=== PATIENT | female | born 1950 | race Caucasian/White ===

== ENCOUNTER 2016-11-20 12:30 | Emergency (ER) | payer MEDICARE, BC ==
[~2016-11-20] VITALS: Ht 165.1 cm; Wt 104.5 kg
[2016-11-20 12:37] VITALS: TEMP 98.2
[2016-11-20 13:36] LABS: PH 7 (5-8); SQUAMOUS EPITHELIAL 0-2 /hpf; URINE APPEARANCE Clear; URINE BACTERIA None Seen /hpf; URINE BILIRUBIN Negative (NEGATIVE); URINE BLOOD Negative (NEGATIVE); URINE COLOR Straw; URINE GLUCOSE Negative (NEGATIVE); URINE KETONE Negative (NEGATIVE); URINE RBC 0-2 /hpf; URINE UROBILINOGEN Negative (NEGATIVE); URINE WBC 0-2 /hpf
[2016-11-20 13:44] LABS: BASO % 0.5 % (0.0-2.0); EOS # 0.1 (0.0-0.7); GRAN # 3.8 (1.4-6.5); GRAN % 57.5 % (42.2-75.2); HEMOGLOBIN 13.9 g/dl (12.5-16.0); LYMPH # 2.1 (1.2-3.4); LYMPH % 31.3 % (20.0-51.0); MEAN CELL VOLUME 92 fl (80.0-100.0); MEAN CORPUSCULAR HEMOGLOBIN 30 pg (27.0-31.0); MEAN CORPUSCULAR HGB CONC 32 g/dl (33.0-37.0); MEAN PLATELET VOLUME 10.3 fl (7.4-10.4); MONO # 0.6 (0.1-0.6); MONO % 8.5 % (1.7-9.3); PLATELET COUNT 269 K/mm3 (130-400); RED BLOOD COUNT 4.67 M/mm3 (4.10-5.30); REDCELL DISTRIBUTION WIDTH-CV 13.9 % (11.5-14.5); WHITE BLOOD COUNT 6.6 K/mm3 (4.8-10.8)
[2016-11-20] MEDS ORDERED: MASON NATURAL1200 MG PO (13:46)
[2016-11-20] MEDS ORDERED: OSCAL 500 TAB500 MG PO (13:46)
[2016-11-20] MEDS ORDERED: WOMEN'S DAILY1 TAB PO (13:46)
[2016-11-20] MEDS ORDERED: LIPITOR 40MG TA40 MG PO (13:47)
[2016-11-20] MEDS ORDERED: ASPIRIN 81M81 MG/TA2 PO (13:47)
[2016-11-20] MEDS ORDERED: VITAMIN D32000 IU PO (13:47)
[2016-11-20] MEDS ORDERED: B COMPLEX & B121 TAB PO (13:47)
[2016-11-20] MEDS ORDERED: DEXILANT60 MG PO (13:47)
[2016-11-20] MEDS ORDERED: ZESTRIL 10MG10 MG PO (13:48)
[2016-11-20] MEDS ORDERED: ZEBETA 5MG5 MG PO (13:48)
[2016-11-20 13:53] LABS: ADJUSTED CALCIUM 9.8 mg/dL (8.4-10.2); ALANINE AMINOTRANSFERASE 34 U/L (9-52); ALBUMIN 4.2 gm/dL (3.5-5.0); ALKALINE PHOSPHATASE 68 U/L (50-136); ANION GAP 13 mmol/L (7-16); BILIRUBIN,TOTAL 0.9 mg/dL (0.0-1.0); BLOOD UREA NITROGEN 19 mg/dL (7-17); CARBON DIOXIDE 24 mmol/L (22-30); CHLORIDE 103 mmol/L (98-107); GLUCOSE 115 mg/dL (74-106); MAGNESIUM 2.2 mg/dL (1.6-2.3); POTASSIUM 4.1 mmol/L (3.4-5.0); SODIUM 140 mmol/L (137-145); TOTAL PROTEIN 7.7 gm/dL (6.4-8.2)
[2016-11-20 14:04] LABS: TROPONIN-I < 0.012 ng/mL (0.000-0.034)
[2016-11-20 16:46] VITALS: BP 132/86
[2016-11-20] MEDS ORDERED: ATIVAN 0.50.5 MG/TAB PO (17:33)
[2016-11-20 17:41] VITALS: PULSE 86
== END 2016-11-20 17:41 | disposition home or self-care (01) ==
LOC: COL.ER 12:30
PROVIDERS: Emergency Medicine
DX: R42 Dizziness and giddiness (principal); H81.20 Vestibular neuronitis, unspecified ear
CPT/HCPCS: J2060; J7030; Q9967

== ENCOUNTER → 2016-12-09 | Outpatient (CLI) | payer MEDICARE, BC ==
[~2016-12-09] MED LIST: ASPIRIN 81M81 MG/TA2 PO; ATIVAN 0.50.5 MG/TAB PO; B COMPLEX & B121 TAB PO; DEXILANT60 MG PO; LIPITOR 40MG TA40 MG PO; MASON NATURAL1200 MG PO; OSCAL 500 TAB500 MG PO; VITAMIN D32000 IU PO; WOMEN'S DAILY1 TAB PO; ZEBETA 5MG5 MG PO; ZESTRIL 10MG10 MG PO
== END ==
LOC: MHCPAIN 08:25
DX: G89.29 Other chronic pain (principal); M47.812 Spondylosis without myelopathy or radiculopathy, cervical region
CPT/HCPCS: G0463

== ENCOUNTER → 2017-03-10 | Outpatient (CLI) | payer MEDICARE, BC | LOC: MHCPAIN 07:43 | DX: G89.29 Other chronic pain (principal); M50.90 Cervical disc disorder, unspecified, unspecified cervical region; R51 Headache; Z87.891 Personal history of nicotine dependence | CPT/HCPCS: G0463 ==

== ENCOUNTER → 2017-04-28 | Outpatient (CLI) | payer MEDICARE, BC ==
[~2017-04-28] MED LIST changes: +CITRACAL + D CA1 TAB PO; +FISH OIL 500 M1 EAC1 PO; +FLONASEALLERGY NS; +GLUCOPHAGE XR500 M1 PO; -MASON NATURAL1200 MG PO; -OSCAL 500 TAB500 MG PO
== END ==
LOC: MHCPAIN 08:39
DX: G89.29 Other chronic pain (principal); M50.90 Cervical disc disorder, unspecified, unspecified cervical region; R51 Headache; Z87.891 Personal history of nicotine dependence; Z79.82 Long term (current) use of aspirin
CPT/HCPCS: G0463

== ENCOUNTER → 2017-08-06 | Outpatient (CLI) | payer MEDICARE, BC ==
[~2017-08-06] MED LIST changes: -CITRACAL + D CA1 TAB PO; -FISH OIL 500 M1 EAC1 PO; -FLONASEALLERGY NS; -GLUCOPHAGE XR500 M1 PO; +MASON NATURAL1200 MG PO; +OSCAL 500 TAB500 MG PO
== END ==
LOC: COL.VAS 13:49
DX: M79.89 Other specified soft tissue disorders (principal)

== ENCOUNTER → 2017-09-08 | Outpatient (CLI) | payer MEDICARE, BC | LOC: MC.RAD 08-18 11:40 | DX: Z12.31 Encounter for screening mammogram for malignant neoplasm of breast (principal); Z98.82 Breast implant status ==

== ENCOUNTER → 2018-09-13 | Outpatient (CLI) | payer MEDICARE, BC | LOC: MC.RAD 10:30 | DX: Z12.31 Encounter for screening mammogram for malignant neoplasm of breast (principal); Z98.82 Breast implant status ==

== ENCOUNTER → 2018-12-01 | Outpatient (CLI) | payer MEDICARE, BC ==
[~2018-12-01] VITALS: Ht 163.8 cm; Wt 113.2 kg
[~2018-12-01] MED LIST changes: +CITRACAL + D CA1 TAB PO; +FISH OIL 500 M1 EAC1 PO; +FLONASEALLERGY NS; +GLUCOPHAGE XR500 M1 PO; -MASON NATURAL1200 MG PO; -OSCAL 500 TAB500 MG PO
[2018-12-01 08:18] VITALS: BP 126/74; PULSE 78
== END ==
LOC: LIGHT 07:54
DX: E88.81 Metabolic syndrome and other insulin resistance (principal); I10 Essential (primary) hypertension; E11.65 Type 2 diabetes mellitus with hyperglycemia; E66.01 Morbid (severe) obesity due to excess calories; Z68.41 Body mass index [BMI] 40.0-44.9, adult; Z71.3 Dietary counseling and surveillance
CPT/HCPCS: G0463

== ENCOUNTER → 2018-12-13 | Outpatient (CLI) | payer MEDICARE, BC ==
[~2018-12-13] VITALS: Ht 163.8 cm; Wt 113.9 kg
[2018-12-13 13:56] VITALS: BP 128/76; PULSE 75
== END ==
LOC: LIGHT 11:21
DX: E88.81 Metabolic syndrome and other insulin resistance (principal); I10 Essential (primary) hypertension; E11.9 Type 2 diabetes mellitus without complications; E66.01 Morbid (severe) obesity due to excess calories; Z68.41 Body mass index [BMI] 40.0-44.9, adult; Z71.3 Dietary counseling and surveillance

== ENCOUNTER → 2018-12-27 | Outpatient (CLI) | payer MEDICARE, BC | LOC: LIGHT 09:38 | DX: E88.81 Metabolic syndrome and other insulin resistance (principal); I10 Essential (primary) hypertension; E11.9 Type 2 diabetes mellitus without complications; E66.01 Morbid (severe) obesity due to excess calories; Z68.41 Body mass index [BMI] 40.0-44.9, adult; Z71.3 Dietary counseling and surveillance ==

== ENCOUNTER → 2019-01-04 | Outpatient (CLI) | payer MEDICARE, BC ==
[~2019-01-04] VITALS: Ht 163.8 cm; Wt 113.6 kg
[2019-01-04 13:46] VITALS: BP 136/80; PULSE 68
== END ==
LOC: LIGHT 13:32
DX: E88.81 Metabolic syndrome and other insulin resistance (principal); I10 Essential (primary) hypertension; E11.9 Type 2 diabetes mellitus without complications; E66.01 Morbid (severe) obesity due to excess calories; Z68.41 Body mass index [BMI] 40.0-44.9, adult; Z71.3 Dietary counseling and surveillance
CPT/HCPCS: G0463

== ENCOUNTER → 2019-02-01 | Outpatient (CLI) | payer MEDICARE, BC ==
[~2019-02-01] VITALS: Ht 163.8 cm; Wt 112.5 kg
[2019-02-01 14:26] VITALS: BP 126/76; PULSE 82
== END ==
LOC: LIGHT 01-25 11:51
DX: E88.81 Metabolic syndrome and other insulin resistance (principal); I10 Essential (primary) hypertension; E11.9 Type 2 diabetes mellitus without complications; E66.01 Morbid (severe) obesity due to excess calories; Z68.41 Body mass index [BMI] 40.0-44.9, adult; Z71.3 Dietary counseling and surveillance
CPT/HCPCS: G0463

== ENCOUNTER → 2019-03-08 | Outpatient (CLI) | payer MEDICARE, BC ==
[~2019-03-08] VITALS: Ht 163.8 cm; Wt 112.0 kg
[2019-03-08 14:08] VITALS: BP 126/76; PULSE 81
== END ==
LOC: LIGHT 03-01 15:55
DX: E88.81 Metabolic syndrome and other insulin resistance (principal); I10 Essential (primary) hypertension; E11.9 Type 2 diabetes mellitus without complications; E66.01 Morbid (severe) obesity due to excess calories; Z68.41 Body mass index [BMI] 40.0-44.9, adult; Z71.3 Dietary counseling and surveillance
CPT/HCPCS: G0463

== ENCOUNTER → 2019-09-15 | Outpatient (CLI) | payer MEDICARE, BC | LOC: MC.RAD 08:21 | DX: Z12.31 Encounter for screening mammogram for malignant neoplasm of breast (principal); Z98.82 Breast implant status ==

== ENCOUNTER → 2020-10-03 | Outpatient (CLI) | payer MEDICARE, BC | LOC: MC.RAD 09-18 07:30 | DX: Z12.31 Encounter for screening mammogram for malignant neoplasm of breast (principal); Z98.82 Breast implant status ==

== ENCOUNTER → 2021-07-23 | Outpatient (CLI) | payer MEDICARE, BC | LOC: MHCPAIN 09:07 | DX: M47.816 Spondylosis without myelopathy or radiculopathy, lumbar region (principal); M53.3 Sacrococcygeal disorders, not elsewhere classified; M54.16 Radiculopathy, lumbar region; G89.29 Other chronic pain | CPT/HCPCS: G0463 ==

== ENCOUNTER → 2021-10-08 | Outpatient (CLI) | payer MEDICARE, BC | LOC: COL.RAD 13:05 | DX: Z12.2 Encounter for screening for malignant neoplasm of respiratory organs (principal); Z87.891 Personal history of nicotine dependence ==

== ENCOUNTER → 2021-10-17 | Outpatient (CLI) | payer MEDICARE, BC | LOC: MHCPAIN 08-01 16:33 | DX: M47.816 Spondylosis without myelopathy or radiculopathy, lumbar region (principal); M54.16 Radiculopathy, lumbar region; M53.3 Sacrococcygeal disorders, not elsewhere classified | CPT/HCPCS: J1100; Q9967 ==

== ENCOUNTER → 2021-11-12 | Outpatient (CLI) | payer MEDICARE, BC | LOC: MHCPAIN 07:52 | DX: M54.50 Low back pain, unspecified (principal); M47.896 Other spondylosis, lumbar region; M53.3 Sacrococcygeal disorders, not elsewhere classified | CPT/HCPCS: G0463 ==

== ENCOUNTER → 2023-09-30 | Outpatient (CLI) | payer MEDICARE | LOC: COL.RAD 13:50 | DX: Z12.2 Encounter for screening for malignant neoplasm of respiratory organs (principal); Z87.891 Personal history of nicotine dependence ==

== ENCOUNTER → 2023-12-18 | Day surgery (SDC) | payer MEDICARE, BC ==
[~2023-12-18] VITALS: Ht 162.6 cm; Wt 103.2 kg
[~2023-12-18] MED LIST changes: +CEPHALEXIN500 M1 PO; +COZAAR100 MG PO; +Glycopyrrolate 0.2 MG/ML 1 ML VIAL ONE; +LR 1,000 ML IV SCH; +Lidocaine PF 2% (20 MG/ML) 5 ML VIAL ONE; +OZEMPIC0.25 MG/02 SQ; +Ondansetron 4 MG/2 ML VIAL IV PRN
[2023-12-18 09:40] VITALS: BP 120/61; PULSE 79; TEMP 98.3
[2023-12-18 09:55] VITALS: BP 117/55; PULSE 72
[2023-12-18 10:00] VITALS: BP 99/70; PULSE 81
--- NOTE | 2023-12-18 10:02 | NUR ---
0940 Pt ambulated with standby assist from cart to chair 0942 pt tolerating clear liquids and a muffin well 0950 MD Sherman in room 0955 pt verbalizes education and discharge instructions 1000 pt dressed self 1005 pt escorted out to vehicle via wheel chair - denies questions or concerns
[2023-12-18 12:58] VITALS: BP 126/73; PULSE 74; TEMP 97.1
== END ==
LOC: SDCO 07:29
DX: Z12.11 Encounter for screening for malignant neoplasm of colon (principal); D12.2 Benign neoplasm of ascending colon; K22.70 Barrett's esophagus without dysplasia; K21.00 Gastro-esophageal reflux disease with esophagitis, without bleeding; K57.30 Diverticulosis of large intestine without perforation or abscess without bleeding; G47.33 Obstructive sleep apnea (adult) (pediatric); Z87.891 Personal history of nicotine dependence; Z99.81 Dependence on supplemental oxygen
CPT/HCPCS: J2704; J7120